=== PATIENT | female | born 1980 | race Caucasian/White ===

== ENCOUNTER 2019-03-26 07:22 | Emergency (ER) | payer SELFPAY ==
[~2019-03-26] VITALS: Ht 167.6 cm; Wt 49.0 kg
[2019-03-26 07:30] VITALS: BP 118/78
== END 2019-03-26 08:11 | disposition home or self-care (01) ==
LOC: ER 07:22
DX: H66.91 Otitis media, unspecified, right ear (principal); F17.210 Nicotine dependence, cigarettes, uncomplicated

== ENCOUNTER 2019-05-16 08:02 | Emergency (ER) | payer MEDICAID ==
[~2019-05-16] VITALS: Ht 167.6 cm; Wt 49.4 kg
[2019-05-16 09:14] VITALS: BP 114/81
[2019-05-16] MEDS ORDERED: IBUPROFEN 800 MG TAB PO ONE (10:00)
[2019-05-16] MEDS ORDERED: cefTRIAXone SOD 1,000 MG VL IM ONE (10:00)
== END 2019-05-16 10:43 | disposition home or self-care (01) ==
LOC: ER 08:02
DX: K02.9 Dental caries, unspecified (principal)
CPT/HCPCS: 96372; 99283; J0696

== ENCOUNTER 2019-07-03 10:40 | Inpatient (IN) | payer MEDICAID ==
[~2019-07-03] VITALS: Ht 165.1 cm; Wt 55.8 kg
[2019-07-03] MEDS ORDERED: SODIUM CHLORIDE 0.9% 1,000 ML IV ONE (10:55)
[2019-07-03] MEDS ORDERED: SODIUM CHLORIDE 0.9% 500 ML IVB ONE (10:55)
[2019-07-03] MEDS ORDERED: MORPHINE SULFATE 4 MG/ML SYR/VIAL IV PRN (11:00)
[2019-07-03 11:09] LABS: Basophils # (auto) 0 10 ^3/uL (0-0.2); Basophils % (auto) 0.6 % (0.0-2.0); Eosinophils # (auto) 0.1 10 ^3/uL (0-0.8); Eosinophils % (auto) 2.2 % (0.0-7.0); Hematocrit 42.6 % (36.0-46.0); Hemoglobin 14.1 g/dL (12.2-16.2); Lymphocytes # (auto) 2.1 10 ^3/uL (0.4-5.4); Lymphocytes % (auto) 30.2 % (10.0-50.0); Mean Corpuscular Hemoglobin 29.3 pg (28.0-32.0); Mean Corpuscular Volume 88.8 fL (80.0-100.0); Monocytes # (auto) 0.5 10 ^3/uL (0-1.3); Monocytes % (auto) 6.8 % (0.0-12.0); Neutrophils # (auto) 4.1 10 ^3/uL (1.6-8.6); Neutrophils % (auto) 60.2 % (37.0-80.0); Platelet Count (auto) 313 10^3/uL (140-450); Red Cell Distribution Width 14.4 % (11.8-14.3); White Blood Cell 6.8 10^3/uL (4.4-10.8)
[2019-07-03 11:22] LABS: Magnesium 2.2 mg/dL (1.6-2.6); Potassium 3.9 mmol/L (3.5-5.1)
[2019-07-03 11:23] LABS: INR 1.04 (0.9-1.15); Partial Thromboplastin Time 27.3 sec (23.64-32.05)
[2019-07-03 11:25] LABS: BUN/Creatinine Ratio 13.4; Bilirubin, Total 0.9 mg/dL (0.2-1.0); Total Protein 7.9 g/dL (6.4-8.2)
[2019-07-03] MEDS: PROMETHAZINE HCL 25 MG/ML 1ML IV PRN (11:26)
[2019-07-03 13:08] LABS: Urine Bacteria NONE SEEN /hpf (None Seen); Urine Blood TRACE /uL (Negative); Urine Mucus FEW (None Seen); Urine Specific Gravity 1.027 (1.001-1.035); Urine WBC <1 /hpf (0 - 5)
[2019-07-03] MEDS ORDERED: LIDOCAINE 1% (LOCAL ANESTH.) PF 5ml SDV ONE (15:01)
[2019-07-03] MEDS ORDERED: SUCCINYLCHOLINE CHLORIDE 20 MG/ML 10ML VIAL IV ONE (15:01)
[2019-07-03] MEDS ORDERED: ceFAZolin 1GM/50ML 50 ML IV ONE (15:04)
[2019-07-03] MEDS ORDERED: ONDANSETRON HCL 4 MG/2 ML VIAL IV PRN (15:30)
[2019-07-03] MEDS ORDERED: HYDROmorphone HCL 2 MG/ML VL IV PRN ×2 (15:30→15:45)
[2019-07-03] MEDS ORDERED: NALOXONE HCL 0.4 MG/ML VIAL IV PRN (15:30)
[2019-07-03] MEDS ORDERED: ePHEDrine SULFATE 50 MG/ML AMP IV PRN (15:30)
[2019-07-03] MEDS ORDERED: GLYCOPYRROLATE 0.2 MG/ML 1ML VIAL ONE (15:44)
[2019-07-03] MEDS ORDERED: LACTATED RINGER'S 1,000 ML IV SCH (15:56)
[2019-07-03] MEDS ORDERED: ACETAMINOPHEN 500 MG TAB PO PRN (16:00)
[2019-07-03] MEDS: HYDROmorphone HCL 2 MG/ML VL IV PRN ×3 (16:11→16:32)
--- NOTE | 2019-07-03 17:30 | NUR ---
MS admit from OR BRYANNADEEJAY admitted to tele/MS after SBAR received. Patient oriented to JORGE SCOTT RN primary RN, unit, room, bed, and unit policies regarding patient care and visiting hours. Patient weighed by bedscale and encouraged to call if they need something. All questions and concerns addressed, patient verbalized understanding.
--- NOTE | 2019-07-03 18:22 | NUR ---
CALLED BLOOD BANK RE: RHOGAM ORDERS.
[2019-07-03] MEDS: LACTATED RINGER'S 1,000 ML IV SCH (19:15)
--- NOTE | 2019-07-03 19:30 | NUR ---
Opening Shift Note Received report from Wyatt GOODRICH. Assumed care of patient, awake and alert. No S/S of distress/SOB or pain. Post op dressing on lower abdomen c/d/i with abdominal binder. Instructed on POC and to call for assist PRN, will continue to monitor for changes Q1hr and PRN.
[2019-07-03 19:51] LABS: Basophils # (auto) 0 10 ^3/uL (0-0.2); Basophils % (auto) 0.2 % (0.0-2.0); Eosinophils # (auto) 0 10 ^3/uL (0-0.8); Eosinophils % (auto) 0.1 % (0.0-7.0); Hematocrit 33.5 % (36.0-46.0); Hemoglobin 11.4 g/dL (12.2-16.2); Lymphocytes # (auto) 0.7 10 ^3/uL (0.4-5.4); Lymphocytes % (auto) 8.3 % (10.0-50.0); Mean Corpuscular Hemoglobin 30.3 pg (28.0-32.0); Mean Corpuscular Volume 89.3 fL (80.0-100.0); Monocytes # (auto) 0.5 10 ^3/uL (0-1.3); Neutrophils # (auto) 7.1 10 ^3/uL (1.6-8.6); Neutrophils % (auto) 85.4 % (37.0-80.0); Platelet Count (auto) 228 10^3/uL (140-450); Red Blood Cells 3.75 10^6/uL (4.0-5.20); Red Cell Distribution Width 14.3 % (11.8-14.3); White Blood Cell 8.3 10^3/uL (4.4-10.8)
[2019-07-03] MEDS: MORPHINE SULFATE 4 MG/ML SYR/VIAL IV PRN (21:21)
[2019-07-03] MEDS: ceFAZolin 1GM/50ML 50 ML IV SCH (21:21)
[2019-07-03 21:46] VITALS: BP 119/71
[2019-07-03] MEDS: ONDANSETRON HCL 4 MG/2 ML VIAL IV PRN (21:47)
[2019-07-04] MEDS: RHO (D) IMMUNE GLOBULIN 300 MCG INJ IM PRN ×2 (00:51→00:52)
[2019-07-04] MEDS: ONDANSETRON HCL 4 MG/2 ML VIAL IV PRN ×2 (02:06→06:28)
[2019-07-04] MEDS: LACTATED RINGER'S 1,000 ML IV SCH ×4 (02:06→21:45)
[2019-07-04] MEDS: MORPHINE SULFATE 4 MG/ML SYR/VIAL IV PRN ×2 (02:06→06:28)
[2019-07-04 05:00] VITALS: BP 131/84
[2019-07-04] MEDS: ceFAZolin 1GM/50ML 50 ML IV SCH ×2 (06:00→13:31)
[2019-07-04 06:05] LABS: Basophils # (auto) 0 10 ^3/uL (0-0.2); Eosinophils # (auto) 0 10 ^3/uL (0-0.8); Eosinophils % (auto) 0.1 % (0.0-7.0); Hematocrit 35.4 % (36.0-46.0); Hemoglobin 11.9 g/dL (12.2-16.2); Lymphocytes % (auto) 11.3 % (10.0-50.0); Mean Corpuscular Hemoglobin 29.9 pg (28.0-32.0); Mean Corpuscular Hgb Conc. 33.6 g/dL (32.0-36.0); Mean Corpuscular Volume 88.9 fL (80.0-100.0); Monocytes # (auto) 0.6 10 ^3/uL (0-1.3); Monocytes % (auto) 6.4 % (0.0-12.0); Neutrophils # (auto) 7.3 10 ^3/uL (1.6-8.6); Neutrophils % (auto) 82.2 % (37.0-80.0); Platelet Count (auto) 222 10^3/uL (140-450); Red Blood Cells 3.99 10^6/uL (4.0-5.20); Red Cell Distribution Width 14.4 % (11.8-14.3); White Blood Cell 8.9 10^3/uL (4.4-10.8)
--- NOTE | 2019-07-04 06:10 | NUR ---
Received call from Irena for update. made aware that patient doesn't want to received Cephazolin because it's makes her more sicker, verbalized understanding.
--- NOTE | 2019-07-04 07:25 | NUR ---
Patient medicated 3x for nausea/vomiting and pain. Right now patient still with moderate pain. Endorsed care to Misty GOODRICH.
--- NOTE | 2019-07-04 07:49 | NUR ---
Opening Note Assumed pt care from SAQIB RN. Pt is a/ox4 with no s/s of distress or SOB. Pt is currently sitting upright in bed c/o abdominal ache and nausea. Discussed next available medication. Incision to abdomen is clean, dry and intact. Gallego is present, draining to gravity. Discussed POC with pt; pt verbalized understanding. Will continue to monitor.
--- NOTE | 2019-07-04 08:57 | NUR ---
Dr Osborn Called New orders given, read back and verified. Will implement.
[2019-07-04 09:00] VITALS: BP 133/61
[2019-07-04] MEDS ORDERED: HYDROcodone-ACET 10/325MG TAB PO PRN (09:00)
[2019-07-04] MEDS ORDERED: BISACODYL 10 MG RECT SUPP PR PRN (09:00)
[2019-07-04] MEDS ORDERED: KETOROLAC TROMETH 15 mg/ml 1ML VL IV PRN (09:00)
--- NOTE | 2019-07-04 09:10 | NUR ---
Gallego Catheter Removed Pt instructed to call if need assistance. Will continue to monitor. Addendum: 07/04/19 at 0952 by GRETCHEN ULLOA RN RN Pt has since voided. Will continue to monitor.
[2019-07-04] MEDS: PROMETHAZINE HCL 25 MG/ML 1ML IV PRN (09:12)
[2019-07-04] MEDS: DOCUSATE SOD 100 MG CAP PO SCH ×2 (09:13→22:17)
[2019-07-04] MEDS: KETOROLAC TROMETH 30 MG/ML 1ML VIAL IV PRN ×2 (10:25→18:24)
--- NOTE | 2019-07-04 12:47 | NUR ---
Pt Tolerated Advancement of Diet Will advance to full liquid per MD's orders. Will continue to monitor.
[2019-07-04 13:00] VITALS: BP 114/57
--- NOTE | 2019-07-04 13:31 | NUR ---
Pt Refused Antibiotic Pt refused Ancef. Pt states "It makes me itch". Will notify
--- NOTE | 2019-07-04 14:10 | NUR ---
Dr Osborn at Bedside MD to see pt. New orders to advance diet to soft diet. Will continue to monitor.
[2019-07-04 17:13] VITALS: BP 125/77
--- NOTE | 2019-07-04 18:08 | NUR ---
Abdominal Dressing Reinforced Dressing to incision reinforced. No adverse s/s noted. Will continue to monitor.
--- NOTE | 2019-07-04 19:20 | NUR ---
Opening Shift Note Received report from Misty GOODRICH. Assumed care of patient, awake and alert, states feeling better than yesterday. No S/S of distress/SOB or pain. Instructed on POC and to call for assist PRN, will continue to monitor for changes Q1hr and PRN.
[2019-07-04 22:00] VITALS: BP 127/69
[2019-07-05 05:00] VITALS: BP 118/76
--- NOTE | 2019-07-05 06:50 | NUR ---
Patient awake at this time, stable vitals and no pain. Patient eager to go home.
--- NOTE | 2019-07-05 07:05 | NUR ---
Physician Rounding MD Osborn at bedside, updated her on plan of care. New orders received, I will follow through with MD orders.
--- NOTE | 2019-07-05 07:20 | NUR ---
Opening shift note assumed care of patient from NOC JOLEEN Sorenson. Patient is AOx4, no s/s of distress noted. Bed is in lowest locked position, side rails up x2, call light within reach. Updated her on plan of care, patient verbalized understanding. I will continue to monitor Q1hr and PRN.
[2019-07-05 08:48] VITALS: BP 133/75
--- NOTE | 2019-07-05 08:50 | NUR ---
Patient complaint of pain Patient stated " I am having pain 5/10, i dont want anything strong for the pain. It's just uncomfortable." I will give pain medication as ordered and I will continue to monitor q1hr and PRN
[2019-07-05] MEDS: KETOROLAC TROMETH 30 MG/ML 1ML VIAL IV PRN (09:46)
[2019-07-05] MEDS: LACTATED RINGER'S 1,000 ML IV SCH (09:46)
[2019-07-05] MEDS: DOCUSATE SOD 100 MG CAP PO SCH (09:46)
[2019-07-05 12:12] VITALS: BP 117/81
[2019-07-05 12:52] VITALS: BP 127/72
--- NOTE | 2019-07-05 13:05 | NUR ---
Discharge instructions given as ordered. Encourage to follow up with PMD as instructed. All questions and concerns addressed. Patient verbalized understanding. IV removed with catheter intact, pressure dressing applied. Patient taken to vehicle via wheelchair with all personal belongings, accompanied by staff. No distress noted at time of departure.
== END 2019-07-05 13:05 | disposition home or self-care (01) | DRG 545 ==
LOC: ER 10:40 → TELE 10:41 → TELE-WESTW 17:25 → WEST WING 19:09
PROVIDERS: ADMIT Internal Medicine; ATTEND Internal Medicine Nephrology
PROC: 10T20ZZ Resection of Products of Conception, Ectopic, Open Approach (ICD-10-PCS; 2019-07-03)
PROC: 0UB50ZZ Excision of Right Fallopian Tube, Open Approach (ICD-10-PCS; principal; 2019-07-03 15:09)
DX: O00.101 Right tubal pregnancy without intrauterine pregnancy (principal); K66.1 Hemoperitoneum; F17.210 Nicotine dependence, cigarettes, uncomplicated; R58 Hemorrhage, not elsewhere classified
CPT/HCPCS: 36415; 76801; 76817; 80053; 81001; 83690; 83735; 84702; 85025; 85610; 85730; 86850; 86900; 86901; 90384; 96361; 96374; 96375; G0378; J0330; J0690; J1885; J2405